=== PATIENT | female | born 1935 | race Caucasian/White ===

== ENCOUNTER 2019-02-14 12:47 | Inpatient (IN) | payer OTHER ==
[2019-02-14] MEDS ORDERED: SODIUM CHLORIDE 500 ML IV STA (13:12)
[2019-02-14] MEDS ORDERED: dilTIAZem HCL 50 MG/10 ML - 10 ML VIAL IVPUSH ONE (13:30)
[2019-02-14] MEDS ORDERED: dilTIAZem HCL 30 MG TABLET (FP) PO ONE (13:30)
[2019-02-14 13:46] LABS: BASO % 0.6 % (0-2.0); EOS % 1.2 % (0-4.5); HEMATOCRIT 38.6 % (32.4-45.2); HEMOGLOBIN 12.9 GM/dL (10.7-15.3); LYMPH % 27.5 % (8-40); MCH 31.1 pg (25.7-33.7); MCHC 33.3 g/dl (32.0-36.0); MEAN CELL VOLUME 93.1 fl (80-96); MEAN PLT VOLUME 9.7 fl (7.5-11.1); MONO % 6.4 % (3.8-10.2); NEUT % 64.3 % (42.8-82.8); PLATELET COUNT 157 K/MM3 (134-434); RBC 4.15 M/mm3 (3.60-5.2); RDW 14.7 % (11.6-15.6); WHITE BLOOD COUNT 4.9 K/mm3 (4.0-10.0)
[2019-02-14] MEDS ORDERED: dilTIAZem HCL 30 MG TABLET (FP) ONE (13:47)
[2019-02-14] MEDS ORDERED: dilTIAZem HCL 50 MG/10 ML - 10 ML VIAL ONE (13:56)
[2019-02-14] MEDS ORDERED: dilTIAZem HCL 125 MG/25 ML - 25 ML VIAL ONE (13:57)
[2019-02-14 14:14] LABS: INR 1.06 (0.83-1.09); PROTHROMBIN TIME (PATIENT) 12.5 SEC (9.7-13.0)
[2019-02-14 14:16] LABS: ACTIVATED PTT 32.4 SECONDS (25.2-36.5)
--- NOTE | 2019-02-14 14:38 | PDOC ---
History of Present Illness - General Chief Complaint: Irregular Heart Beat Stated Complaint: SENT BY DR PATRICIO/DULCE MARIA EKG Time Seen by Provider: 02/14/19 13:20 History Source: Patient, Family - History of Present Illness Initial Comments: 83 y/o F, pmh of HTN, presents to the ED from her dental specialist for irregular heart rhythm. As per pt, she was originally at her perioperative manager for a regular follow up, when she became symptomatic, with headaches, dizziness and palpitations and he sent her to the dental specialist, Dr. August. The dental specialist found her symptoms to be concerning and hence send the pt to the ED for a cardiac work up. Pt also reports having shortness of breath on exertion for a few years now with no real diagnosis given to her. Pt recently was recovering from a productive cough with yellow sputum, which now resolved, therefore, she was following up with Dr. Nazario for a well check up. Admits to headaches, back pain and abdominal tenderness on palpation. Denies f/c/n/v/d/chest pain/ abdominal pain. 02/14/19 14:28 Is this a multiple visit Asthma Patient?: No Severity: moderate Associated Symptoms: reports: denies symptoms, headaches, shortness of breath, weakness. denies: chest pain, cough, diaphoresis, fever/chills, loss of appetite, malaise, nausea/vomiting, rash Aspirin Received prior to arrival: Yes: no aspirin today Past History - Travel Traveled outside of the country in the last 30 days: No Close contact w/someone who was outside of country & ill: No - Past Medical History Allergies/Adverse Reactions: Allergies Allergy/AdvReac Type Severity Reaction Status Date / Time No Known Drug Allergies Allergy Verified 02/14/19 12:51 orange flavor Allergy Itching Verified 02/14/19 12:51 Home Medications: Ambulatory Orders Albuterol Sulfate [Proair Hfa] 2 puff IH DAILY PRN 02/14/19 Amlodipine Besylate 1 tab PO DAILY 02/14/19 Latanoprost/Pf [Latanoprost 0.005% Eye Drop] 1 drop OU DAILY 02/14/19 Montelukast Sodium [Singulair] 1 tab PO DAILY 02/14/19 Pantoprazole Sodium [Protonix -] 1 tab DAILY 02/14/19 Vit C/E/Zn/Coppr/Lutein/Zeaxan [Preservision Areds 2 Softgel] 1 cap PO DAILY Anemia: No Asthma: No Cancer: No Cardiac Disorders: No Hx Myocardial Infarction: No COPD: No CHF: No GI Disorders: Yes (GALLSTONES) HTN: Yes - Surgical History Cholecystectomy: Yes - Psycho Social/Smoking Cessation Hx Smoking Status: No Smoking History: Never smoked Have you smoked in the past 12 months: No Number of Cigarettes Smoked Daily: 0 Hx Alcohol Use: No Drug/Substance Use Hx: No Substance Use Type: None Hx Substance Use Treatment: No Review of Systems - Review of Systems Able to Perform ROS?: Yes Is the patient limited Austrian proficient: No Constitutional: Yes: Weakness, Weight Stable. No: Chills, Diaphoresis, Fever, Loss of Appetite, Night Sweats HEENTM: No: Blurred Vision, Tearing, Throat Pain, Throat Swelling Respiratory: Yes: Shortness of Breath, SOB with Exertion. No: Cough, Orthopnea , Wheezing, Productive cough Cardiac (ROS): Yes: Irregular Heart Rate, Lightheadedness. No: Chest Pain, Palpitations, Chest Tightness ABD/GI: No: Abdominal Distended, Blood Streaked Bowels, Constipated, Diarrhea, Nausea, Vomiting : No: Dysuria Musculoskeletal: Yes: Back Pain Neurological: Yes: Headache. No: Numbness, Tingling *Physical Exam - Vital Signs Last Vital Signs Temp Pulse Resp BP Pulse Ox 98.3 F 114 H 20 109/63 96 02/14/19 12:52 02/14/19 12:52 02/14/19 12:52 02/14/19 12:52 02/14/19 12:52 - Physical Exam General Appearance: Yes: Nourished, Appropriately Dressed. No: Apparent Distress HEENT: positive: EOMI, YOKASTA, Normal ENT Inspection, Pharynx Normal Neck: positive: Trachea midline, Normal Thyroid, Supple. negative: Lymphadenopathy (R) Respiratory/Chest: positive: Lungs Clear, Normal Breath Sounds. negative: Respiratory Distress, Crackles, Rales, Wheezing, Plerual Rub Cardiovascular: positive: Regular Rhythm, Regular Rate, S1, S2, Irregularly Irregular. negative: Murmur, Gallop/S3, Gallop/S4 Vascular Pulses: Dorsalis-Pedis (R): 1+, Doralis-Pedis (L): 1+ Gastrointestinal/Abdominal: positive: Normal Bowel Sounds, Tender (tenderness on the RLQ), Soft Musculoskeletal: negative: CVA Tenderness Extremity: positive: Normal Capillary Refill Neurologic: positive: Fully Oriented, Alert, Normal Mood/Affect ED Treatment Course - LABORATORY CBC & Chemistry Diagram: 02/14/19 13:22 02/14/19 13:22 - ADDITIONAL ORDERS Additional order review: Laboratory Results 02/14/19 13:22 PT with INR 12.50 INR 1.06 PTT (Actin FS) 32.4 02/14/19 13:22 RBC 4.15 MCV 93.1 MCHC 33.3 RDW 14.7 MPV 9.7 D Neutrophils % 64.3 Lymphocytes % 27.5 D Monocytes % 6.4 Eosinophils % 1.2 Basophils % 0.6 - Medications Given in the ED: ED Medications Discontinued Medications Generic Name Dose Route Start Last Admin Trade Name Freq PRN Reason Stop Dose Admin Sodium Chloride 500 mls @ 500 mls/hr 02/14/19 13:12 02/14/19 13:37 Normal Saline - IV 02/14/19 14:11 500 mls/hr ASDIR STA Administration Medical Decision Making - Medical Decision Making 83 y/o F, pmh of HTN, asthma, GERD, glaucoma presents to the ED from her dental specialist for irregular heart rhythm likely 2/2 to A fib w/ RVR #Afib w/ RVR irregular HR + tachy to the 140s, BP stable Cardizam 30 PO given Cardizam 10 IV also pushed IVF bolus given Dr. Pantoja consulted CBC and CMP ordered EKG Cardiac profile ordered trops pending PCP Dr. Lyons Dispo: pt stable now, will likely be admitted 02/14/19 14:43 02/14/19 14:45 Discharge - Discharge Information Problems reviewed: Yes Clinical Impression/Diagnosis: New onset a-fib Condition: Stable - Admission Yes - Follow up/Referral - Patient Discharge Instructions - Post Discharge Activity
[2019-02-14 14:57] LABS: ALBUMIN 3.3 g/dl (3.4-5.0); ALK PHOS 63 U/L (45-117); ANION GAP 7 MMOL/L (8-16); BILIRUBIN,TOTAL 1.3 mg/dL (0.2-1); BLOOD UREA NITROGEN 15.4 mg/dL (7-18); CALCIUM 9.1 mg/dL (8.5-10.1); CHLORIDE 110 mmol/L (98-107); CO2 26 mmol/L (21-32); CREATININE 0.9 mg/dL (0.55-1.3); GLUCOSE,RANDOM 159 mg/dL (74-106); POTASSIUM 3.8 mmol/L (3.5-5.1); SGOT/AST 17 U/L (15-37); SGPT/ALT 23 U/L (13-61); SODIUM 143 mmol/L (136-145); TOT PROT 6.1 g/dl (6.4-8.2)
[2019-02-14] MEDS ORDERED: ACETAMINOPHEN 325 MG TABLET (FP) PO PRN (16:33)
--- NOTE | 2019-02-14 17:06 | PDOC ---
Documentation entered by Maury Gay SCRIBE, acting as scribe for Fabian Frye MD. Fabian Frye MD: This documentation has been prepared by the Victor Hugo carrizales Xhesika, SCRIBE, under my direction and personally reviewed by me in its entirety. I confirm that the documentation accurately reflects all work, treatment, procedures, and medical decision making performed by me. Attending Attestation - Resident Resident Name: Scar Richards - ED Attending Attestation I have performed the following: I have examined & evaluated the patient, The case was reviewed & discussed with the resident, I agree w/resident's findings & plan, Exceptions are as noted - HPI HPI: 02/14/19 14:34 The patient is a 83 year old female with a PMH of GERD who presents to the ED from Dr. Benavidez (cardiology) office for rapid heart rate and chest discomfort. Daughter at bedside notes the patient does not feel her symptoms. Daughter reports chronic cough and chronic abdominal pain. The patient denies shortness of breath, headache and dizziness. Denies fever, chills, cough, nausea, vomiting, diarrhea and constipation. Denies dysuria, frequency, urgency and hematuria. Allergies:, NKDA. orange flavor - Physicial Exam PE: 02/14/19 14:35 Vitals: Triage Vital signs reviewed General Appearance: no acute distress, well nourished well developed, Chest Wall: Nontender Cardiac: Regular rate and rhythm, no murmurs, no rubs, no gallops, Lungs: Clear to auscultation bilateral, good air movement bilaterally, Abdomen: Soft, nondistended, normal bowel sounds, nontender to palpation - Critical Care Time Total Critical Care Time: 35 Critical Care Statement: The care of this patient involved high complexity decision making to prevent further life threatening deterioration of the patient 's condition and/or to evaluate & treat vital organ system(s) failure or risk of failure. - Medical Decision Making 02/14/19 17:12 83 years old with new onset A. fib with RVR EKG shows A. fib RVR with heart rate in the 150s no ST elevations or T wave inversions Hemodynamically stable Patient treated with IV diltiazem with good rate control then given p.o. diltiazem We will admit to medicine for further management on telemetry full dose aspirin given.
[2019-02-14] MEDS ORDERED: ENOXAPARIN NA (PORCINE) 60 MG/0.6 ML DISP.SYRIN SQ ONE (17:13)
[2019-02-14] MEDS ORDERED: ASPIRIN 325 MG TABLET PO ONE (17:17)
[2019-02-14] MEDS: ENOXAPARIN NA (PORCINE) 60 MG/0.6 ML DISP.SYRIN SQ SCH (17:21)
[2019-02-14] MEDS ORDERED: MAG HYDROX/AL HYDROX/SIMETH -MYLANTA- ORAL SUSPENSION PO ONE (18:18)
[2019-02-14] MEDS ORDERED: PT OWN MED DRAWER 7, Y5N ONE (19:04)
[2019-02-14] MEDS: MONTELUKAST NA 10 MG TABLET PO SCH (21:52)
[2019-02-14] MEDS: dilTIAZem HCL 30 MG TABLET (FP) PO SCH (21:52)
[2019-02-14] MEDS: LATANOPROST 0.005% OPHTH SOLN 2.5ML BOTTLE OU SCH (21:54)
[2019-02-14 23:06] VITALS: BMI 29.3
[2019-02-15] MEDS: dilTIAZem HCL 30 MG TABLET (FP) PO SCH ×3 (05:17→21:36)
[2019-02-15] MEDS: ENOXAPARIN NA (PORCINE) 60 MG/0.6 ML DISP.SYRIN SQ SCH ×2 (05:17→16:46)
[2019-02-15 06:22] LABS: BASO % 0.8 % (0-2.0); EOS % 2.1 % (0-4.5); HEMOGLOBIN 12.2 GM/dL (10.7-15.3); LYMPH % 34.2 % (8-40); MCH 30.9 pg (25.7-33.7); MEAN CELL VOLUME 93.4 fl (80-96); MEAN PLT VOLUME 9.4 fl (7.5-11.1); MONO % 7.7 % (3.8-10.2); NEUT % 55.2 % (42.8-82.8); PLATELET COUNT 149 K/MM3 (134-434); RBC 3.96 M/mm3 (3.60-5.2); RDW 14.8 % (11.6-15.6); WHITE BLOOD COUNT 3.8 K/mm3 (4.0-10.0)
[2019-02-15 06:57] LABS: BILIRUBIN,TOTAL 1.3 mg/dL (0.2-1); BLOOD UREA NITROGEN 15.3 mg/dL (7-18); CALCIUM 8.6 mg/dL (8.5-10.1); CREATININE 0.8 mg/dL (0.55-1.3); MAGNESIUM 2.2 mg/dL (1.8-2.4); N-TERMINAL BNP 978.6 pg/ml (5-450); POTASSIUM 3.7 mmol/L (3.5-5.1); TOT PROT 5.6 g/dl (6.4-8.2)
[2019-02-15] MEDS: PANTOPRAZOLE 40 MG TABLET (FP) PO SCH (09:19)
[2019-02-15] MEDS: amLODIPine BESYLATE 5 MG TABLET (FP) PO SCH (09:19)
[2019-02-15] MEDS ORDERED: FUROSEMIDE 40 MG/4 ML INJECTABLE VIAL IVPUSH ONE (13:07)
--- NOTE | 2019-02-15 13:07 | CON.PULM ---
Consult Consult Specialty:: PULMONARY Referred by:: Dr Lyons Reason for Consultation:: shortness of breath - History of Present Illness Chief Complaint: shortness of breath History of Present Illness: 83yo female with h/o HTN, GERD, COPD who was sent by material requirements planning manager for new onset atrial fibrillation. She was in her [place] until 2 days ago, started feeling dyspneic with exertion, dizziness. Noted to be tachycardic in the office. No fevers, chills or sweats. No chest pain or palpitations. +cough nonproductive without wheezing. No history of atrial fibrillation. - History Source History Provided By: Patient, Family Member Limitations to Obtaining History: Language Barrier - Past Medical History Cardio/Vascular: Yes: HTN Pulmonary: Yes: COPD Gastrointestinal: Yes: GERD, Other (choycystitis 2011: had open cholecystectomy) Hepatobiliary: Yes: Cholelithiasis, Cholecystitis ...: No Musculoskeletal: Yes: Chronic low back pain, Osteoarthritis - Past Surgical History Past Surgical History: Yes: Cholecystectomy - Alcohol/Substance Use Hx Alcohol Use: No - Smoking History Smoking history: Never smoked Have you smoked in the past 12 months: No Aproximately how many cigarettes per day: 0 - Social History Occupation: no occupational exposure to dusts or fumes. History of Recent Travel: No Home Medications - Allergies Allergies/Adverse Reactions: Allergies Allergy/AdvReac Type Severity Reaction Status Date / Time No Known Drug Allergies Allergy Verified 02/14/19 12:51 orange flavor Allergy Itching Verified 02/14/19 12:51 - Home Medications Home Medications: Ambulatory Orders Albuterol Sulfate [Proair Hfa] 2 puff IH DAILY PRN 02/14/19 Amlodipine Besylate 5 mg PO DAILY 02/14/19 Latanoprost/Pf [Latanoprost 0.005% Eye Drop] 1 drop OU DAILY 02/14/19 Montelukast Sodium [Singulair] 10 mg PO DAILY 02/14/19 Pantoprazole Sodium [Protonix -] 40 mg DAILY 02/14/19 Vit C/E/Zn/Coppr/Lutein/Zeaxan [Preservision Areds 2 Softgel] 1 cap PO DAILY Review of Systems - Review of Systems Constitutional: reports: Weakness. denies: Chills, Fever Eyes: denies: Recent Change in Vision HENT: denies: Nasal Congestion, Throat Pain Neck: denies: Stiffness, Tenderness Cardiovascular: reports: Shortness of Breath. denies: Chest Pain, Palpitations Respiratory: reports: Cough, SOB on Exertion. denies: Hemoptysis, Wheezing Gastrointestinal: denies: Abdominal Pain, Nausea, Vomiting Genitourinary: denies: Dysuria, Hematuria Neurological: denies: Dizziness, Headache Endocrine: denies: Unexplained Weight Loss Physical Exam Vital Sings: Vital Signs Temperature 98.0 F 02/15/19 08:42 Pulse Rate 104 H 02/15/19 08:42 Respiratory Rate 18 02/15/19 08:42 Blood Pressure 128/81 02/15/19 08:42 O2 Sat by Pulse Oximetry (%) 95 02/15/19 09:00 Constitutional: Yes: Calm Eyes: Yes: Conjunctiva Clear, EOM Intact HENT: Yes: Atraumatic, Normocephalic Neck: Yes: Supple, Trachea Midline Cardiovascular: Yes: Tachycardia, Pulse Irregular Respiratory: Yes: Rhonchi (right base) ...Clubbing: No Gastrointestinal: Yes: Normal Bowel Sounds, Soft. No: Tenderness Edema: No Labs: CBC, BMP 02/15/19 05:50 02/15/19 05:50 Imaging - Results Chest X-ray: Report Reviewed, Image Reviewed Cat Scan: Report Reviewed, Image Reviewed (no PE, pulmonary vascular congestion) Problem List - Problems (1) New onset a-fib Code(s): I48.91 - UNSPECIFIED ATRIAL FIBRILLATION Assessment/Plan New Onset Atrial Fibrillation with RVR Acute Diastolic Heart Failure COPD HTN GERD - rate control - continue anticoagulation - echocardiogram if not done recently - lasix - monitor urine output, creatinine - inhaled bronchodilators - can defer systemic steroids at this time - low suspicion for pneumonia Thank you for this consult Maxime Nazario MD
--- NOTE | 2019-02-15 13:41 | HP ---
Admitting History and Physical - Primary Care Physician PCP: Deric Lyons - Admission Chief Complaint: Uncontrolled afib History of Present Illness: The patient is a 83 year old female with a PMH of GERD who was sent to [facility] ER from her language asst office for tachycardia and chst discomfort. Upon arrival to ER, evaluation showed patient was in rapid Afib with RVR. Daughter reports chronic cough and chronic abdominal pain. The patient denies shortness of breath , headache and dizziness. Denies fever, chills, cough, nausea, vomiting, diarrhea and constipation. Denies dysuria, frequency, urgency and hematuria. History Source: Medical Record Limitations to Obtaining History: Language Barrier - Past Medical History Cardiovascular: Yes: HTN Pulmonary: Yes: COPD Gastrointestinal: Yes: GERD, Other (choycystitis 2011: had open cholecystectomy) Hepatobiliary: Yes: Cholelithiasis, Cholecystitis ...: No Musculoskeletal: Yes: Chronic low back pain, Osteoarthritis - Past Surgical History Past Surgical History: Yes: Cholecystectomy - Advance Directives Advance Directives: Yes: Health Care Proxy - Smoking History Smoking history: Never smoked Have you smoked in the past 12 months: No Aproximately how many cigarettes per day: 0 - Alcohol/Substance Use Hx Alcohol Use: No - Social History Occupation: no occupational exposure to dusts or fumes. History of Recent Travel: No Home Medications - Allergies Allergies/Adverse Reactions: Allergies Allergy/AdvReac Type Severity Reaction Status Date / Time No Known Drug Allergies Allergy Verified 02/14/19 12:51 orange flavor Allergy Itching Verified 02/14/19 12:51 - Home Medications Home Medications: Ambulatory Orders Albuterol Sulfate [Proair Hfa] 2 puff IH DAILY PRN 02/14/19 Amlodipine Besylate 5 mg PO DAILY 02/14/19 Latanoprost/Pf [Latanoprost 0.005% Eye Drop] 1 drop OU DAILY 02/14/19 Montelukast Sodium [Singulair] 10 mg PO DAILY 02/14/19 Pantoprazole Sodium [Protonix -] 40 mg DAILY 02/14/19 Vit C/E/Zn/Coppr/Lutein/Zeaxan [Preservision Areds 2 Softgel] 1 cap PO DAILY Review of Systems - Review of Systems Constitutional: reports: No Symptoms Eyes: reports: No Symptoms HENT: reports: No Symptoms Neck: reports: No Symptoms Cardiovascular: reports: Palpitations Respiratory: reports: No Symptoms Gastrointestinal: reports: No Symptoms Genitourinary: reports: No Symptoms Breasts: reports: No Symptoms Reported Musculoskeletal: reports: No Symptoms Integumentary: reports: No Symptoms Neurological: reports: No Symptoms Endocrine: reports: No Symptoms Hematology/Lymphatic: reports: No Symptoms Psychiatric: reports: No Symptoms Physical Examination Vital Signs: Vital Signs Temperature 98.0 F 02/15/19 08:42 Pulse Rate 104 H 02/15/19 08:42 Respiratory Rate 18 02/15/19 08:42 Blood Pressure 128/81 02/15/19 08:42 O2 Sat by Pulse Oximetry (%) 95 02/15/19 09:00 Constitutional: Yes: Well Nourished, No Distress, Calm Cardiovascular: Yes: Pulse Irregular Respiratory: Yes: Regular Gastrointestinal: Yes: Normal Bowel Sounds, Soft Renal/: Yes: WNL Musculoskeletal: Yes: WNL Extremities: Yes: WNL Edema: No Peripheral Pulses WNL: Yes Neurological: Yes: Alert, Oriented Psychiatric: Yes: Alert, Oriented Labs: CBC, BMP 02/15/19 05:50 02/15/19 05:50 Problem List - Problems (1) New onset a-fib Assessment/Plan: -Cardiology consult -Tele monitor -Last echo done at [facility] was in 2016 -Would repeat echo, if not done with cardiology within past 1 year -Increase diltiazem if tolerates and cardiology agrees -Thyroid profile normal Code(s): I48.91 - UNSPECIFIED ATRIAL FIBRILLATION (2) Atypical chest pain Assessment/Plan: -resolved Problems reviewed: Yes Code(s): R07.89 - OTHER CHEST PAIN (3) Pulmonary nodule Assessment/Plan: -Pulmonary consult -CTA reviewed -Pt afebrile, no leukocytosis- low suspicion for Pneumonia Problems reviewed: Yes Code(s): R91.1 - SOLITARY PULMONARY NODULE Assessment/Plan see problem list
--- NOTE | 2019-02-15 14:27 | EKG ---
Test Reason : Blood Pressure : / mmHG Vent. Rate : 146 BPM Atrial Rate : 104 BPM P-R Int : 000 ms QRS Dur : 076 ms QT Int : 274 ms P-R-T Axes : 000 -19 006 degrees QTc Int : 426 ms POOR DATA QUALITY, INTERPRETATION MAY BE ADVERSELY AFFECTED ATRIAL FIBRILLATION WITH RAPID VENTRICULAR RESPONSE POSSIBLE ANTERIOR INFARCT , AGE UNDETERMINED ABNORMAL ECG WHEN COMPARED WITH ECG OF 24-MAR-2015 12:58, ATRIAL FIBRILLATION HAS REPLACED SINUS RHYTHM VENT. RATE HAS INCREASED BY 73 BPM Confirmed by ELIZABET HOLM MD ([id number]) on 02/15/2019 2:27:06 PM Referred By: Confirmed By:ELIZABET HOLM MD
[2019-02-15] MEDS: MONTELUKAST NA 10 MG TABLET PO SCH (21:36)
[2019-02-15] MEDS: LATANOPROST 0.005% OPHTH SOLN 2.5ML BOTTLE OU SCH (21:37)
[2019-02-16] MEDS: ENOXAPARIN NA (PORCINE) 60 MG/0.6 ML DISP.SYRIN SQ SCH ×2 (04:14→17:57)
[2019-02-16] MEDS: dilTIAZem HCL 30 MG TABLET (FP) PO SCH ×3 (05:56→21:01)
[2019-02-16] MEDS: PANTOPRAZOLE 40 MG TABLET (FP) PO SCH (09:35)
[2019-02-16] MEDS: amLODIPine BESYLATE 5 MG TABLET (FP) PO SCH (09:35)
--- NOTE | 2019-02-16 09:41 | PN ---
Progress Note, Physician Chief Complaint: MELYSSA History of Present Illness: self ambulatory Denies any CP, dizziness or palpitation HR better controlled On lovenox Q12 for VTE prophylaxis until echo is done - Current Medication List Current Medications: Active Medications Acetaminophen (Tylenol -) 650 mg PO Q6H PRN PRN Reason: FEVER Last Admin: 02/14/19 21:52 Dose: 650 mg Amlodipine Besylate (Norvasc -) 5 mg PO DAILY [facility] Last Admin: 02/16/19 09:35 Dose: 5 mg Diltiazem HCl (Cardizem -) 30 mg PO TID [facility] Last Admin: 02/16/19 05:56 Dose: 30 mg Enoxaparin Sodium (Lovenox -) 60 mg SQ Q12H [facility] Last Admin: 02/16/19 04:14 Dose: 60 mg Latanoprost (Xalatan 0.005% Eye Drops -) 1 drop OU HS [facility] Last Admin: 02/15/19 21:37 Dose: 1 drop Montelukast Sodium (Singulair -) 10 mg PO HS [facility] Last Admin: 02/15/19 21:36 Dose: 10 mg Pantoprazole Sodium (Protonix -) 40 mg PO DAILY [facility] Last Admin: 02/16/19 09:35 Dose: 40 mg - Objective Vital Signs: Vital Signs Temperature 97.7 F 02/16/19 08:13 Pulse Rate 65 02/16/19 08:13 Respiratory Rate 18 02/16/19 08:13 Blood Pressure 127/66 02/16/19 08:13 O2 Sat by Pulse Oximetry (%) 97 02/15/19 21:00 Constitutional: Yes: Well Nourished, No Distress, Calm Cardiovascular: Yes: Pulse Irregular Respiratory: Yes: Regular Gastrointestinal: Yes: Normal Bowel Sounds, Soft, Tenderness (suprapubic) Genitourinary: Yes: WNL Musculoskeletal: Yes: WNL Extremities: Yes: WNL Edema: No Peripheral Pulses WNL: Yes Neurological: Yes: Alert, Oriented Psychiatric: Yes: Alert, Oriented Labs: CBC, BMP 02/15/19 05:50 02/15/19 05:50 INR, PTT INR 1.06 (0.83-1.09) 02/14/19 13:22 Problem List - Problems (1) New onset a-fib Assessment/Plan: -Cardiology consult -Tele monitor -Last echo done at [facility] was in 2016 -Would repeat echo, if not done with cardiology within past 1 year -Increase diltiazem if tolerates and cardiology agrees -Thyroid profile normal -Echo in AM -Transition lovenox to eliquis 5 mg po bid if no valvular issues on Echo for afib Problems reviewed: Yes Code(s): I48.91 - UNSPECIFIED ATRIAL FIBRILLATION (2) Atypical chest pain Assessment/Plan: -resolved Problems reviewed: Yes Code(s): R07.89 - OTHER CHEST PAIN (3) Pulmonary nodule Assessment/Plan: -Pulmonary consult -CTA reviewed- chronic findings -Pt afebrile, no leukocytosis- low suspicion for Pneumonia Problems reviewed: Yes Code(s): R91.1 - SOLITARY PULMONARY NODULE (4) Abdominal pain Assessment/Plan: -Suprapubic tenderness on palpation -Check UA/UC -U/S abd/pelvis Problems reviewed: Yes Code(s): R10.9 - UNSPECIFIED ABDOMINAL PAIN Assessment/Plan see problem list
[2019-02-16 09:43] LABS: PH,URINE 5.5 (5.0-8.0); URINE APPEARANCE CLEAR; URINE BILIRUBIN NEGATIVE (NEGATIVE); URINE COLOR YELLOW; URINE GLUCOSE (UA) NEGATIVE (NEGATIVE); URINE KETONE NEGATIVE (NEGATIVE); URINE LEUK ESTERASE NEGATIVE (NEGATIVE); URINE NITRITE NEGATIVE (NEGATIVE); URINE PROTEIN TRACE (NEGATIVE); URINE UROBILINOGEN 0.2 mg/dL (0.2-1.0)
--- NOTE | 2019-02-16 11:53 | PN ---
Progress Note (short form) - Note Progress Note: Consult dictated on 02/14/19 in the ER. 83 year old female admitted with Atrial fib. with rapid ventricular response. H/ o intermittent palpitations. chronic cough wheezing accompanied. H/o COPD, hypertension. Patient converted to sinus rhythm. ambutated and c/o of lightheaded but she is normotensive. No SOB reported. BNP was elevated. Active Medications Acetaminophen (Tylenol -) 650 mg PO Q6H PRN PRN Reason: FEVER Last Admin: 02/14/19 21:52 Dose: 650 mg Amlodipine Besylate (Norvasc -) 5 mg PO DAILY [facility] Last Admin: 02/16/19 09:35 Dose: 5 mg Diltiazem HCl (Cardizem -) 30 mg PO TID [facility] Last Admin: 02/16/19 05:56 Dose: 30 mg Enoxaparin Sodium (Lovenox -) 60 mg SQ Q12H [facility] Last Admin: 02/16/19 04:14 Dose: 60 mg Latanoprost (Xalatan 0.005% Eye Drops -) 1 drop OU HS [facility] Last Admin: 02/15/19 21:37 Dose: 1 drop Montelukast Sodium (Singulair -) 10 mg PO HS [facility] Last Admin: 02/15/19 21:36 Dose: 10 mg Pantoprazole Sodium (Protonix -) 40 mg PO DAILY [facility] Last Admin: 02/16/19 09:35 Dose: 40 mg Last Vital Signs Temp Pulse Resp BP Pulse Ox 98.8 F 66 18 140/68 96 02/16/19 12:00 02/16/19 12:05 02/16/19 12:05 02/16/19 12:05 02/16/19 09:00 CBC, BMP 02/15/19 05:50 02/15/19 05:50 NECK: Supple, no JVD, carotids equal. HEART: Supple, S1 & S2 normal. Faint grade I/ systolic murmur LSB. LUNGS: Clear. ABDOMEN: Soft, nontender, no organomegaly, incisional hernia. EXTREMITIES: No calf tenderness or dependent edema. IMPRESSION: 1. Paroxymsal atrial fibrillation, currently in sinus rhythm. 2. Hypertension. 3. Lightheaded most likely related to medications. 4. CHF. 5. COPD. RECOMMENDATIONS: 1. D/c amlodipine. 2. Anticoagulation. 3. Echocardiogram. 4. If BP is elevated, increase the dose of Cardizem. 5. F/U ECG. Mukesh Wu MD.
--- NOTE | 2019-02-16 11:56 | PN ---
Progress Note (short form) - Note Progress Note: PULMONARY Back in sinus rhythm. Breathing better. Vital Signs Period Temp Pulse Resp BP Sys/Capellan Pulse Ox Last 24 Hr 97.7 F-98.7 F 65-106 18-22 117-139/61-84 96-97 Intake & Output 02/13/19 02/14/19 02/15/19 02/16/19 23:59 23:59 23:59 23:59 Intake Total 130 1820 520 Balance 130 1820 520 Weight 63.684 kg Gen: NAD at rest Heart: RRR Lung: right base rales Abd: soft, nontender Ext: no edema CBC, BMP 02/15/19 05:50 02/15/19 05:50 Active Medications Acetaminophen (Tylenol -) 650 mg PO Q6H PRN PRN Reason: FEVER Last Admin: 02/14/19 21:52 Dose: 650 mg Amlodipine Besylate (Norvasc -) 5 mg PO DAILY [facility] Last Admin: 02/16/19 09:35 Dose: 5 mg Diltiazem HCl (Cardizem -) 30 mg PO TID [facility] Last Admin: 02/16/19 05:56 Dose: 30 mg Enoxaparin Sodium (Lovenox -) 60 mg SQ Q12H [facility] Last Admin: 02/16/19 04:14 Dose: 60 mg Latanoprost (Xalatan 0.005% Eye Drops -) 1 drop OU HS [facility] Last Admin: 02/15/19 21:37 Dose: 1 drop Montelukast Sodium (Singulair -) 10 mg PO HS [facility] Last Admin: 02/15/19 21:36 Dose: 10 mg Pantoprazole Sodium (Protonix -) 40 mg PO DAILY [facility] Last Admin: 02/16/19 09:35 Dose: 40 mg A/P Paroxysma Atrial Fibrillation with RVR Acute Diastolic Heart Failure COPD HTN GERD - rate control - continue anticoagulation - echocardiogram - lasix as needed - monitor urine output, creatinine - inhaled bronchodilators - can defer systemic steroids at this time - low suspicion for pneumonia Problem List - Problems (1) New onset a-fib Code(s): I48.91 - UNSPECIFIED ATRIAL FIBRILLATION
[2019-02-16] MEDS ORDERED: FUROSEMIDE 40 MG/4 ML INJECTABLE VIAL IVPUSH ONE (12:15)
[2019-02-16] MEDS: MONTELUKAST NA 10 MG TABLET PO SCH (21:01)
[2019-02-16] MEDS: LATANOPROST 0.005% OPHTH SOLN 2.5ML BOTTLE OU SCH (21:02)
[2019-02-17] MEDS: dilTIAZem HCL 30 MG TABLET (FP) PO SCH ×3 (05:24→21:39)
[2019-02-17] MEDS: ENOXAPARIN NA (PORCINE) 60 MG/0.6 ML DISP.SYRIN SQ SCH ×2 (05:24→17:42)
--- NOTE | 2019-02-17 08:42 | PN ---
Progress Note, Physician Chief Complaint: awake alert denies chest pain or sob events and notes reviewed - Current Medication List Current Medications: Active Medications Acetaminophen (Tylenol -) 650 mg PO Q6H PRN PRN Reason: FEVER Last Admin: 02/14/19 21:52 Dose: 650 mg Diltiazem HCl (Cardizem -) 30 mg PO TID [facility], [facility] Last Admin: 02/17/19 05:24 Dose: Not Given Enoxaparin Sodium (Lovenox -) 60 mg SQ Q12H [facility], [facility] Last Admin: 02/17/19 05:24 Dose: 60 mg Latanoprost (Xalatan 0.005% Eye Drops -) 1 drop OU HS [facility] Last Admin: 02/16/19 21:02 Dose: 1 drop Montelukast Sodium (Singulair -) 10 mg PO [facility] Last Admin: 02/16/19 21:01 Dose: 10 mg Pantoprazole Sodium (Protonix -) 40 mg PO DAILY [facility] Last Admin: 02/16/19 09:35 Dose: 40 mg - Objective Vital Signs: Vital Signs Temperature 98.2 F 02/17/19 06:12 Pulse Rate 70 02/17/19 06:12 Respiratory Rate 18 02/17/19 06:12 Blood Pressure 143/72 02/17/19 06:12 O2 Sat by Pulse Oximetry (%) 96 02/16/19 09:00 Constitutional: Yes: No Distress Cardiovascular: Yes: Pulse Irregular Respiratory: Yes: Diminished Gastrointestinal: Yes: Soft Genitourinary: Yes: WNL Musculoskeletal: Yes: WNL Extremities: Yes: WNL Edema: No Peripheral Pulses WNL: Yes Wound/Incision: Yes: Clean/Dry Neurological: Yes: WNL Labs: CBC, BMP 02/15/19 05:50 02/15/19 05:50 INR, PTT INR 1.06 (0.83-1.09) 02/14/19 13:22 Problem List - Problems (1) New onset a-fib Code(s): I48.91 - UNSPECIFIED ATRIAL FIBRILLATION (2) Abnormal ECG Code(s): R94.31 - ABNORMAL ELECTROCARDIOGRAM [ECG] [EKG] (3) Atypical chest pain Code(s): R07.89 - OTHER CHEST PAIN (4) HTN (hypertension) Code(s): I10 - ESSENTIAL (PRIMARY) HYPERTENSION Assessment/Plan ON RATE CONTROL CARDIZEM LOVENOX BID BRIDGE TO ELIQUIS 5MG BID OOB TO CHAIR PULM/CARDIO EVAL APPRECIATED OOB TO CHAIR DC PLANNING
[2019-02-17] MEDS: PANTOPRAZOLE 40 MG TABLET (FP) PO SCH (10:10)
--- NOTE | 2019-02-17 10:29 | PN ---
Progress Note (short form) - Note Progress Note: Consult dictated on 02/14/19 in the ER. 83 year old female admitted with Atrial fib. with rapid ventricular response. H/ o intermittent palpitations. chronic cough wheezing accompanied. H/o COPD, hypertension. Patient converted to sinus rhythm. ambutating, she remains normotensive. No SOB reported. No cough or wheezing.Waiting for Echo. and CT of the abdomen. Active Medications Acetaminophen (Tylenol -) 650 mg PO Q6H PRN PRN Reason: FEVER Last Admin: 02/14/19 21:52 Dose: 650 mg Diltiazem HCl (Cardizem -) 30 mg PO TID [facility] Last Admin: 02/17/19 05:24 Dose: Not Given Enoxaparin Sodium (Lovenox -) 60 mg SQ Q12H [facility] Last Admin: 02/17/19 05:24 Dose: 60 mg Latanoprost (Xalatan 0.005% Eye Drops -) 1 drop OU HS [facility] Last Admin: 02/16/19 21:02 Dose: 1 drop Montelukast Sodium (Singulair -) 10 mg PO HS [facility] Last Admin: 02/16/19 21:01 Dose: 10 mg Pantoprazole Sodium (Protonix -) 40 mg PO DAILY [facility] Last Admin: 02/16/19 09:35 Dose: 40 mg Last Vital Signs Temp Pulse Resp BP Pulse Ox 98.2 F 70 18 143/72 96 02/17/19 06:12 02/17/19 06:12 02/17/19 06:12 02/17/19 06:12 02/16/19 09:00 NECK: Supple, no JVD, carotids equal. HEART: Supple, S1 & S2 normal. Faint grade I/ systolic murmur LSB. LUNGS: Clear. ABDOMEN: Soft, nontender, no organomegaly, incisional hernia. EXTREMITIES: No calf tenderness or dependent edema. IMPRESSION: 1. Paroxymsal atrial fibrillation, currently in sinus rhythm. 2. Hypertension, presently normotensive. 3. CHF, resolved 4. COPD. RECOMMENDATIONS: 1. Work up in progress. 2. Anticoagulation. 3. Echocardiogram. 4. If BP is elevated, increase the dose of Cardizem. 5. F/U ECG. Mukesh Wu MD.
--- NOTE | 2019-02-17 11:37 | PN ---
Progress Note (short form) - Note Progress Note: Comfortable on RA. No CP or SOB. No acute events overnight. Intake & Output 02/14/19 02/15/19 02/16/19 02/17/19 23:59 23:59 23:59 23:59 Intake Total 130 1820 1590 Balance 130 1820 1590 Weight 140 lb 6.4 oz Last Vital Signs Temp Pulse Resp BP Pulse Ox 98.2 F 70 18 143/72 96 02/17/19 06:12 02/17/19 06:12 02/17/19 06:12 02/17/19 06:12 02/16/19 09:00 Active Medications Acetaminophen (Tylenol -) 650 mg PO Q6H PRN PRN Reason: FEVER Last Admin: 02/14/19 21:52 Dose: 650 mg Diltiazem HCl (Cardizem -) 30 mg PO TID [facility] Last Admin: 02/17/19 05:24 Dose: Not Given Enoxaparin Sodium (Lovenox -) 60 mg SQ Q12H [facility] Last Admin: 02/17/19 05:24 Dose: 60 mg Latanoprost (Xalatan 0.005% Eye Drops -) 1 drop OU HS [facility] Last Admin: 02/16/19 21:02 Dose: 1 drop Montelukast Sodium (Singulair -) 10 mg PO HS [facility] Last Admin: 02/16/19 21:01 Dose: 10 mg Pantoprazole Sodium (Protonix -) 40 mg PO DAILY [facility] Last Admin: 02/16/19 09:35 Dose: 40 mg Gen: NAD at rest Heart: RRR Lung: few bibasilar rales / rhonchi Abd: soft, nontender Ext: no edema Problem List - Problems (1) New onset a-fib Code(s): I48.91 - UNSPECIFIED ATRIAL FIBRILLATION A/P Paroxysmal Atrial Fibrillation with RVR Acute Diastolic Heart Failure Low suspicion of PNA COPD HTN GERD - rate control - continue anticoagulation - Lasix as needed - monitor urine output, creatinine - inhaled bronchodilators - Defer systemic steroids at this time Dr [place]
--- NOTE | 2019-02-17 16:20 | ECHO ---
Name: DAYANA HANNON Exam:Adult Echocardiogram Study Date: 02/17/2019 11:06 AM Age: 83 yrs Height: 58 in Weight: 140 lb BSA: 1.6 m2 MMode/2D Measurements & Calculations IVSd: 0.74 cm Ao root diam: 2.6 cm LVIDd: 4.0 cm LA dimension: 3.0 cm LVIDs: 2.7 cm LVPWd: 1.2 cm LVPWs: 1.5 cm EDV(Teich): 69.9 ml ESV(Teich): 27.0 ml LVOT diam: 1.9 cm LAV (MOD-bp): 60.8 ml TAPSE: 1.4 cm RV S Jesus: 14.0 cm/sec Doppler Measurements & Calculations Ao V2 max: 119.3 cm/sec LV V1 max P.3 mmHg Ao max P.7 mmHg LV V1 max: 103.8 cm/sec DELLA(V,D): 2.4 cm2 TR max jesus: 230.1 cm/sec PA V2 max: 89.1 cm/sec TR max P.2 mmHg PA max P.2 mmHg Lat Peak E' Jesus: 4.8 cm/sec Procedure A complete two-dimensional transthoracic echocardiogram was performed (2D, M-mode, Doppler and color flow Doppler). Technically limited study. Left Ventricle The left ventricle is normal in size. Left ventricular systolic function is normal. Ejection Fraction = 60- 65%. No regional wall motion abnormalities noted. Right Ventricle The right ventricle is normal size. The right ventricular systolic function is normal. RV systolic TD I is 14 cm/s. Atria The left atrial size is normal. Right atrial size is normal. Mitral Valve The mitral valve is normal in structure and function. There is trace to mild mitral regurgitation. Tricuspid Valve The tricuspid valve is normal in structure and function. There is mild tricuspid regurgitation. Right ventricular systolic pressure is normal. Aortic Valve The aortic valve is normal in structure and function. Mild aortic regurgitation. Pulmonic Valve The pulmonic valve is not well visualized. Great Vessels The aortic root is normal size. Pericardium/Pleura There is no pericardial effusion. Interpretation Summary The left ventricle is normal in size. Left ventricular systolic function is normal. No regional wall motion abnormalities noted. Ejection Fraction = 60-65%. The right ventricular systolic function is normal. The left atrial size is normal. Right atrial size is normal. There is trace to mild mitral regurgitation. There is mild tricuspid regurgitation. Right ventricular systolic pressure is normal. Mild aortic regurgitation. There is no pericardial effusion. Arthur Wen MD 02/17/2019 04:20 PM
[2019-02-17] MEDS ORDERED: dilTIAZem HCL 30 MG TABLET (FP) PO ONE (17:45)
[2019-02-17] MEDS: MONTELUKAST NA 10 MG TABLET PO SCH (21:39)
[2019-02-17] MEDS: LATANOPROST 0.005% OPHTH SOLN 2.5ML BOTTLE OU SCH (21:41)
[2019-02-18] MEDS: ENOXAPARIN NA (PORCINE) 60 MG/0.6 ML DISP.SYRIN SQ SCH (05:16)
[2019-02-18] MEDS: dilTIAZem HCL 30 MG TABLET (FP) PO SCH (05:39)
[2019-02-18 06:49] LABS: HEMATOCRIT 38.3 % (32.4-45.2); HEMOGLOBIN 12.7 GM/dL (10.7-15.3); MCH 30.7 pg (25.7-33.7); MCHC 33.1 g/dl (32.0-36.0); MEAN CELL VOLUME 92.8 fl (80-96); MEAN PLT VOLUME 8.8 fl (7.5-11.1); PLATELET COUNT 162 K/MM3 (134-434); RBC 4.12 M/mm3 (3.60-5.2); RDW 14.8 % (11.6-15.6); WHITE BLOOD COUNT 3.4 K/mm3 (4.0-10.0)
[2019-02-18 07:03] LABS: BLOOD UREA NITROGEN 20.4 mg/dL (7-18); CALCIUM 8.8 mg/dL (8.5-10.1); CREATININE 0.8 mg/dL (0.55-1.3)
[2019-02-18] MEDS ORDERED: APIXABAN 5 MG TABLET PO SCH (08:00)
--- NOTE | 2019-02-18 08:36 | DS ---
Physical Examination Vital Signs: Vital Signs Temperature 98.3 F 02/18/19 06:00 Pulse Rate 89 02/18/19 06:00 Respiratory Rate 20 02/18/19 06:00 Blood Pressure 115/78 02/18/19 06:00 O2 Sat by Pulse Oximetry (%) 95 02/17/19 21:00 Constitutional: Yes: No Distress Eyes: Yes: WNL HENT: Yes: WNL Neck: Yes: WNL Cardiovascular: Yes: Pulse Irregular Respiratory: Yes: WNL Gastrointestinal: Yes: WNL Musculoskeletal: Yes: WNL Extremities: Yes: WNL Edema: No Labs: CBC, BMP 02/18/19 05:37 02/18/19 05:37 Discharge Summary Problems reviewed: Yes Reason For Visit: NEW ONSET ATRIAL FIB Current Active Problems Abdominal pain (Acute) New onset a-fib (Acute) Procedures: Principal: LABS/CXR Hospital Course: ADMITTED NEW ONSET AFIB, STARTED HER ON CARDIZEM FOR RATE CONTROL, TRANSITIONED FROM LOVENOX TO ELIQUIS, AND CARDIZEM CD DAILY 120MG. F/U WITH YOUR PRIMARY DOCTOR IN 1 WEEK Plan of Treatment: CONTINUE CARDIZEM CD AND ELIQUIS, SEE YOUR DOCTOR IN 1 WEEK Condition: Improved - Instructions Diet, Activity, Other Instructions: YOU MUST SEE YOUR DOCTOR IN 2-3 DAYS LOW SALT DIET RETURN TO E.D IF YOU FEEL DIZZY, CHEST PAIN, PALPITATIONS Disposition: VNS/HOME HEALTH CARE - Home Medications Comprehensive Discharge Medication List: Ambulatory Orders Albuterol Sulfate [Proair Hfa] 2 puff IH DAILY PRN 02/14/19 Latanoprost/Pf [Latanoprost 0.005% Eye Drop] 1 drop OU DAILY 02/14/19 Montelukast Sodium [Singulair] 10 mg PO DAILY 02/14/19 Pantoprazole Sodium [Protonix -] 40 mg DAILY 02/14/19 Vit C/E/Zn/Coppr/Lutein/Zeaxan [Preservision Areds 2 Softgel] 1 cap PO DAILY Acetaminophen [Tylenol .Regular Strength -] 650 mg PO Q6H PRN tablet 02/18/19 Apixaban [Eliquis -] 5 mg PO BID #60 tablet 02/18/19 Diltiazem Cd [Cardizem Cd -] 120 mg PO DAILY #30 cap.cd.24h 02/18/19 Latanoprost 0.005% Eye Drops [Xalatan 0.005% Eye Drops -] 1 drop OU HS drops Montelukast Na [Singulair -] 10 mg PO HS tablet 02/18/19 Pantoprazole Sodium [Protonix -] 40 mg PO DAILY tablet.ec 02/18/19 Prescription Drug Monitoring Program (I-STOP) results: I-STOP not reviewed
[2019-02-18] MEDS: PANTOPRAZOLE 40 MG TABLET (FP) PO SCH (09:58)
[2019-02-18 14:23] VITALS: BP 144/66; PULSE 68; TEMP 98.3
--- NOTE | 2019-02-21 19:00 | CONS ---
DATE OF CONSULTATION: DATE OF DICTATION: 02/14/2019 REQUESTING PHYSICIAN: Dr. Jacome____ /ER physician. REASON FOR CONSULTATION: Cardiology consultation. CHIEF COMPLAINT: 1. Rapid heartbeat. 2. History of cough and wheezing over the past 3 years. 3. History of dyspnea. 4. History of "chest burning". 5. History of intermittent palpitations. Patient is an 83-year-old Chinese female, was in office for a followup and was noted to have a rapid and irregular pulse and was brought over to my office. History was obtained through her daughter. According to her daughter, she had been suffering from persistent and chronic cough for the past 3 years that was persistent and pronounced. The cough was at times accompanied with yellowish expectoration and wheezing. She also has dyspnea with exertion walking short distances and according to her daughter, she had been experiencing orthopnea and paroxysmal nocturnal dyspnea. She was unable to climb a flight of stairs without shortness of breath. On questioning, she has had intermittent palpitations. There is also history of "burning in the chest". On occasion, patient has had dizziness and near syncope. Patient has longstanding history of hypertension and has been diagnosed to have glaucoma. There is no history of diabetes mellitus reported, no history of heart murmur or rheumatic fever. In the office, she was found to be in atrial fibrillation with rapid ventricular response and in view of her symptoms was advised hospitalization. PAST HISTORY: 1. As mentioned in the history of present illness. 2. History of bilateral cataracts, left more pronounced than right. 3. History of glaucoma. SURGICAL HISTORY: Status post cholecystectomy. SOCIAL HISTORY: A , has 3 sons and 3 daughters. One of the daughters is known to have asthma. The older son has "heart problem", type uncertain. The other children apparently are healthy. She is a nonsmoker and denies use of alcohol. FAMILY HISTORY: Father in his 30s while he was sent to [facility]. Mother at age 72 of unknown cause. Had 2 brothers and a sister. Young brother of a myocardial infarction. Other siblings are apparently healthy. ALLERGIES: ORANGES "causes itching". MEDICATION: List of medications obtained from the pharmacy was as follows: 1. Amlodipine 5 mg p.o. daily. 2. Prednisone dose mentioned was 5, 10, and 20 mg. 3. Pantoprazole 40 mg p.o. daily. 4. Singulair 10 mg p.o. daily. 5. ProAir dose is not available. 6. Latanoprost 0.5 mg 1 drop in each eye daily. Medications recorded in the emergency room also include Dulera 100 mcg/5 mcg inhaler dated . REVIEW OF SYSTEMS: Constitutional: No history of chills, fevers, or night sweats. No history of unintentional weight loss. HEENT: History of intermittent headaches, history of visual disturbance described as blurring, no history of diplopia. No history of epistaxis or hoarseness. No history of tinnitus, or deafness. Gastrointestinal: According to the daughter, patient has significant history of gastroesophageal reflux disease, no history of recent nausea, vomiting, melena or hematemesis. No history of abdominal pain or discomfort. History of chronic constipation. Musculoskeletal: History of arthritis involving the knees and back. Genitourinary: No history of dysuria, frequency, urgency, or hematuria. Neurological: No history of seizures or syncope. History of lightheadedness and near syncopal episode as mentioned by the daughter. Endocrine: No history of polyuria or polydipsia, no history of intolerance to cold or warm weather. Hematological: No history of anemia or bleeding or ecchymosis. PHYSICAL EXAMINATION: General: An 83-year-old alert female was in no acute distress, no pallor, cyanosis, clubbing or jaundice. Vital signs: Vital signs in the office were as follows: Weight was 140 pounds, blood pressure 150/90 mmHg, pulse was 138 beats per minute and irregularly irregular, height 57 inches, BMI was 20. Neck: Supple. No jugulovenous distention, carotids were 2+, upstrokes were normal, no bruits were heard, and no thyromegaly was present. Heart: PMI was in the 5th intercostal space, no heaves or thrills. There was no parasternal heave. S1 was variable. S2 was normal. No murmur or gallops were heard. Lungs: Clear on auscultation. Chest: Normal AP diameter, there was scoliosis, expansion grossly appeared to be normal. Abdomen: Soft, nontender, no hepatosplenomegaly or palpable masses were felt. There was a right upper quadrant incisional scar with incisional hernia that was reducible. Bowel sounds were present. No bruits were heard. Extremities: No calf tenderness or dependent edema, femoral pulses were 2+, dorsalis pedis pulses were 1+. Posterior tibial pulses could not be palpated. COURSE IN THE EMERGENCY ROOM: Patient received oral diltiazem 30 mg at 1330 hours followed by diltiazem 10 mg IV, and another repeat dose at 1347 hours followed by another dose of intravenous diltiazem. This was followed by lightheadedness and hypotensive episode. She received normal saline at 500 mL per hour, and the blood pressure stabilized. LABORATORY DATA: CBC: WBC count 4900. Hemoglobin 12.9 g/dL. Hematocrit 38.6%. Normal cell indices. Platelet count 157,000. Normal differential. Electrolytes: Serum sodium 143, potassium 3.8, chloride 110, CO2 of 26 mmol/L. BUN 15.4 g/dL. Creatinine 0.9 mg/dL. Random glucose 159 mg/dL. Total bilirubin 1.3. CK 74, troponin less than 0.02. BNP is pending. X-ray chest, portable. Impression: No evidence of active pulmonary disease. ECG, February 14, 2019, at 1303 hours: Atrial fibrillation with rapid ventricular response at a rate of 146 beats per minute. Left axis deviation. Atypical R wave progression V1 to V3, and terminal S waves in V5 and V6 may reflect right ventricular preponderance. IMPRESSION: 1. Atrial fibrillation with rapid ventricular response of uncertain duration. 2. History of dyspnea, wheezing, coughing, compatible with chronic asthmatic bronchitis/chronic obstructive pulmonary disease. 3. Glaucoma. 4. Congestive heart failure needs exclusion. 5. History of gastroesophageal reflux disease. 6. History of intermittent burning sensation in the chest, etiology: A. Secondary to gastroesophageal reflux disease. B. Coronary artery disease needs exclusion. RECOMMENDATION: 1. BNP is pending. 2. Follow up ECG and troponin levels. 3. Once blood pressure is stabilized, will resume oral diltiazem 30 mg t.i.d. and once blood pressure is fully stable, could be switched over to extended release. 4. Anticoagulation. 5. Echocardiogram. 6. T3, T4, TSH. 7. Monitored on telemetry. Prognosis guarded. Thank you for your referral. Time spent with the patient 55 minutes. ROBY PATRICIO M.D. [id number]
== END 2019-02-18 16:20 | disposition home health service (06) | DRG 308 ==
LOC: JER 12:47 → JERBED 15:40 → J4S 18:34
PROVIDERS: ADMIT Family Medicine; ATTEND Family Medicine
DX: I48.0 Paroxysmal atrial fibrillation (principal); I50.33 Acute on chronic diastolic (congestive) heart failure; I11.0 Hypertensive heart disease with heart failure; J44.9 Chronic obstructive pulmonary disease, unspecified; K21.9 Gastro-esophageal reflux disease without esophagitis; R07.89 Other chest pain; R10.9 Unspecified abdominal pain; R00.0 Tachycardia, unspecified
CPT/HCPCS: 36415; 71045-TC-FY; 71275-TC; 76700-TC; 76856-TC; 80048; 80053; 80061; 81003; 82550; 83036; 83721; 83735; 83880; 84436; 84443; 84484; 85025; 85027; 85610; 85730; 87086; 93005; 93010; 93306-TC; 99284-25; Q9967